=== PATIENT | male | born 1980 | race African-American/Black ===

== ENCOUNTER → 2018-05-17 | Emergency (ER) | payer OTHER | END | disposition left against medical advice (07) | LOC: ER 09:39 | DX: Z53.21 Procedure and treatment not carried out due to patient leaving prior to being seen by health care provider (principal) ==

== ENCOUNTER 2018-07-31 13:52 | Emergency (ER) | payer OTHER ==
[~2018-07-31] VITALS: Ht 177.8 cm; Wt 88.5 kg
== END 2018-07-31 17:44 | disposition home or self-care (01) ==
LOC: ER 13:52
DX: J09.X2 Influenza due to identified novel influenza A virus with other respiratory manifestations (principal); B34.9 Viral infection, unspecified